=== PATIENT | female | born 1980 | race Caucasian/White ===

== ENCOUNTER 2023-04-29 10:26 | Emergency (ER) | payer MEDICAID, OTHER ==
[~2023-04-29] VITALS: Ht 167.6 cm; Wt 77.2 kg
[~2023-04-29 10:26] MED LIST: NITR-87 PO; ONDA-133 PO; TRAM50TA2 PO
[2023-04-29 11:15] VITALS: BP 137/92
[2023-04-29] MEDS ORDERED: KETOROLAC TROMETH 60MG/2ML VIAL IM ONE (13:00)
[2023-04-29] MEDS ORDERED: DexAMETHasone SOD PHOS 10MG/1ML VIAL INJ IM ONE (13:00)
[2023-04-29] MEDS ORDERED: HYDROcodone-ACET 5/325MG TAB PO ONE (13:00)
[2023-04-29] MEDS ORDERED: IBUP1TAB5 PO (13:02)
[2023-04-29] MEDS ORDERED: CYCL-839 PO (13:02)
== END 2023-04-29 13:24 | disposition home or self-care (01) ==
LOC: ER 10:26
DX: S29.012A Strain of muscle and tendon of back wall of thorax, initial encounter (principal); S20.212A Contusion of left front wall of thorax, initial encounter; K76.0 Fatty (change of) liver, not elsewhere classified; Z88.2 Allergy status to sulfonamides; Z88.1 Allergy status to other antibiotic agents; W18.39XA Other fall on same level, initial encounter; Y93.89 Activity, other specified; Y92.099 Unspecified place in other non-institutional residence as the place of occurrence of the external cause
CPT/HCPCS: 71250; 72070; 96372; 99285; J1100; J1885